=== PATIENT | female | born 1965 | race Hispanic/Latino ===

== ENCOUNTER → 2018-02-01 | Outpatient (CLI) | payer MEDICARE ==
[~2018-02-01] MED LIST: ALPR2TAB7 PO; ASPI-555 PO; CHOL100046 PO; CYAN500L3 SL; DICY20TA11 PO; FLUO40CA49 PO; GABA-531 PO; IRON18TA PO; IRON1CAP35 PO; OMEP20CA10 PO
== END | disposition home or self-care (01) ==
LOC: RAH 12:51
PROVIDERS: ATTEND Nurse Practitioner Family
DX: I70.90 Unspecified atherosclerosis (principal); J32.0 Chronic maxillary sinusitis; I66.29 Occlusion and stenosis of unspecified posterior cerebral artery; I10 Essential (primary) hypertension; E78.5 Hyperlipidemia, unspecified; E78.00 Pure hypercholesterolemia, unspecified; F41.9 Anxiety disorder, unspecified; F32.9 Major depressive disorder, single episode, unspecified; G43.909 Migraine, unspecified, not intractable, without status migrainosus; R26.89 Other abnormalities of gait and mobility; R42 Dizziness and giddiness; R41.3 Other amnesia; Z72.0 Tobacco use; Z79.899 Other long term (current) drug therapy
CPT/HCPCS: 70544; 70551

== ENCOUNTER → 2018-05-29 | Outpatient (CLI) | payer MEDICARE | END | disposition home or self-care (01) | LOC: RAH 09:47 | PROVIDERS: ATTEND Nurse Practitioner Family | DX: Z12.31 Encounter for screening mammogram for malignant neoplasm of breast (principal) | CPT/HCPCS: 77067 ==

== ENCOUNTER 2018-06-27 16:52 | Emergency (ER) | payer MEDICARE ==
[2018-06-27 17:50] LABS: BASOPHILS % (AUTO) 0.9 % (0.0-5.0); EOSINOPHILS % (AUTO) 2.6 % (0.0-8.0); HEMATOCRIT 37.1 % (36-48); LYMPHOCYTES % (AUTO) 27.2 % (21.0-51.0); MEAN CORPUSCULAR HEMOGLOBIN 22.8 pg (27.0-33.0); MEAN CORPUSCULAR HGB CONC 31.1 g/dL (32.0-36.0); MEAN CORPUSCULAR VOLUME 73.4 fL (79-99); MONOCYTES % (AUTO) 6.5 % (3.0-13.0); NEUTROPHILS % (AUTO) 62.8 % (40.0-77.0); PLATELET COUNT (AUTO) 186 K/uL (130-400); RED BLOOD CELL COUNT(AUTO) 5.06 MIL/uL (4.00-5.50); RED CELL DISTRIBUTION WIDTH 22.8 % (11.0-15.5); WHITE BLOOD COUNT (AUTO) 5.7 K/uL (4.8-10.8)
[2018-06-27 18:04] LABS: CREATININE 0.8 mg/dL (0.5-1.5); POTASSIUM 3.4 mmol/L (3.5-5.1)
[2018-06-27 18:09] LABS: ALBUMIN 3.4 g/dL (3.5-5.0); BILIRUBIN,TOTAL 0.5 mg/dL (0.2-1.0); TOTAL PROTEIN, SERUM 7.3 g/dL (6.0-8.3)
[2018-06-27 18:29] LABS: INR 0.9 (0.85-1.15); PARTIAL THROMBOPLASTIN TIME 28.7 SEC (26.3-35.5); PROTHROMBIN TIME 9.5 SEC (9.6-11.6)
== END 2018-06-27 20:40 | disposition home or self-care (01) ==
LOC: EDH 16:52
DX: R20.0 Anesthesia of skin (principal); R29.810 Facial weakness; F41.9 Anxiety disorder, unspecified; F32.9 Major depressive disorder, single episode, unspecified; R79.1 Abnormal coagulation profile; W01.0XXA Fall on same level from slipping, tripping and stumbling without subsequent striking against object, initial encounter; Y93.01 Activity, walking, marching and hiking; Y92.89 Other specified places as the place of occurrence of the external cause; Y99.8 Other external cause status
CPT/HCPCS: 36415; 70450; 80053; 84484; 85025; 85610; 85730; 93005

== ENCOUNTER 2019-04-24 04:42 | Emergency (ER) | payer MEDICARE ==
[~2019-04-24 04:42] MED LIST changes: +OMEP-50 PO; -OMEP20CA10 PO
== END 2019-04-24 06:30 | disposition home or self-care (01) ==
LOC: EDH 04:42
DX: M54.5 Low back pain (principal); F41.9 Anxiety disorder, unspecified; F32.9 Major depressive disorder, single episode, unspecified; Z87.891 Personal history of nicotine dependence; W18.39XA Other fall on same level, initial encounter; Y93.01 Activity, walking, marching and hiking; Y92.89 Other specified places as the place of occurrence of the external cause; Y99.8 Other external cause status
CPT/HCPCS: 70450; 72170; 73090

== ENCOUNTER → 2019-09-04 | Outpatient (CLI) | payer MEDICARE ==
[~2019-09-04] MED LIST changes: -OMEP-50 PO; +OMEP20CA12 PO
== END | disposition home or self-care (01) ==
LOC: RAH 12:46
PROVIDERS: ATTEND Nurse Practitioner Family
DX: N60.02 Solitary cyst of left breast (principal); R92.2 Inconclusive mammogram
CPT/HCPCS: 76641; 77065

== ENCOUNTER 2021-02-20 11:05 | Emergency (ER) | payer OTHER, MEDICARE ==
[~2021-02-20] VITALS: Ht 162.6 cm; Wt 93.0 kg
[~2021-02-20 11:05] MED LIST changes: -ASPI-555 PO; +ASPI-556 PO
[2021-02-20 11:58] VITALS: BP 124/88
[2021-02-20 12:07] LABS: BASOPHILS % (AUTO) 1.1 % (0.0-5.0); EOSINOPHILS % (AUTO) 2.6 % (0.0-8.0); HEMATOCRIT 39.5 % (36-48); LYMPHOCYTES % (AUTO) 32.2 % (21.0-51.0); MEAN CORPUSCULAR HGB CONC 31.6 g/dL (32.0-36.0); MEAN CORPUSCULAR VOLUME 82.3 fL (79-99); MONOCYTES % (AUTO) 7.6 % (3.0-13.0); NEUTROPHILS % (AUTO) 56.2 % (40.0-77.0); PLATELET COUNT (AUTO) 221 K/uL (130-400); RED CELL DISTRIBUTION WIDTH 14.6 % (11.0-15.5); WHITE BLOOD COUNT (AUTO) 6.2 K/uL (4.8-10.8)
[2021-02-20 12:21] LABS: CREATININE 0.8 mg/dL (0.5-1.5); POTASSIUM 3.9 mmol/L (3.5-5.1)
[2021-02-20 12:25] LABS: ALBUMIN 3.4 g/dL (3.5-5.0); BILIRUBIN,TOTAL 0.4 mg/dL (0.2-1.0); TOTAL PROTEIN, SERUM 7.5 g/dL (6.0-8.3)
[2021-02-20] MEDS ORDERED: 0.9%NACL 1000ML 1,000 ML IV ONE (13:01)
[2021-02-20 13:25] VITALS: BP 126/86
== END 2021-02-20 14:02 | disposition home or self-care (01) ==
LOC: EDH 11:05
DX: F41.9 Anxiety disorder, unspecified (principal); I25.10 Atherosclerotic heart disease of native coronary artery without angina pectoris; E11.9 Type 2 diabetes mellitus without complications; I10 Essential (primary) hypertension
CPT/HCPCS: 36415; 80053; 84484; 85025; 93005; 99284; J7030

== ENCOUNTER → 2023-03-02 | Outpatient (CLI) | payer OTHER, MEDICARE ==
[~2023-03-02] MED LIST changes: -DICY20TA11 PO; +DICY20TA3 PO
== END | disposition home or self-care (01) ==
LOC: RAH 12:13
PROVIDERS: ATTEND Nurse Practitioner Family
DX: N60.01 Solitary cyst of right breast (principal); N60.02 Solitary cyst of left breast
CPT/HCPCS: 77066

== ENCOUNTER → 2023-11-30 | Outpatient (CLI) | payer OTHER, MEDICARE ==
[2023-11-30 13:00] LABS: ALBUMIN 3.4 g/dL (3.5-5.0); BILIRUBIN,TOTAL 0.6 mg/dL (0.2-1.0); CREATININE 0.9 mg/dL (0.5-1.0); POTASSIUM 3.9 mmol/L (3.5-5.1); TOTAL PROTEIN, SERUM 7.2 g/dL (6.0-8.3)
== END | disposition home or self-care (01) ==
LOC: LAB 12:01
PROVIDERS: ATTEND Nurse Practitioner Family
DX: L72.9 Follicular cyst of the skin and subcutaneous tissue, unspecified (principal); R51.9 Headache, unspecified
CPT/HCPCS: 36415; 80053

== ENCOUNTER → 2023-12-01 | Outpatient (CLI) | payer OTHER, MEDICARE ==
[~2023-12-01] MED LIST changes: +IOHEXOL-350 50ML VIAL IV ONE
== END | disposition home or self-care (01) ==
LOC: RAH 11:15
PROVIDERS: ATTEND Nurse Practitioner Family
DX: R51.9 Headache, unspecified (principal); L72.9 Follicular cyst of the skin and subcutaneous tissue, unspecified
CPT/HCPCS: 70470; Q9967

== ENCOUNTER 2023-12-20 15:58 | Emergency (ER) | payer OTHER, MEDICARE ==
[~2023-12-20] VITALS: Ht 162.6 cm; Wt 102.1 kg
[~2023-12-20 15:58] MED LIST changes: -IOHEXOL-350 50ML VIAL IV ONE
[2023-12-20 16:57] LABS: BASOPHILS # (AUTO) 0.06 K/uL (0.00-0.20); EOSINOPHILS # (AUTO) 0.15 K/uL (0.00-0.70); EOSINOPHILS % (AUTO) 2.6 % (0.0-8.0); HEMATOCRIT 40.4 % (36-48); IMMATURE GRANULOCYTE ABSOLUTE 0.01 K/uL (0-1); LYMPHOCYTES # (AUTO) 1.7 K/uL (1.0-4.8); LYMPHOCYTES % (AUTO) 28.8 % (21.0-51.0); MEAN CORPUSCULAR HEMOGLOBIN 26.3 pg (27.0-33.0); MEAN CORPUSCULAR HGB CONC 31.7 g/dL (32.0-36.0); MONOCYTES # (AUTO) 0.4 K/uL (0.1-1.0); MONOCYTES % (AUTO) 7.6 % (3.0-13.0); NEUTROPHILS # (AUTO) 3.5 K/uL (1.8-7.7); NEUTROPHILS % (AUTO) 59.8 % (40.0-77.0); PLATELET COUNT (AUTO) 203 K/uL (130-400); RED BLOOD CELL COUNT(AUTO) 4.87 MIL/uL (4.00-5.50); WHITE BLOOD COUNT (AUTO) 5.8 K/uL (4.8-10.8)
[2023-12-20 17:07] LABS: INR <= 0.93 (0.85-1.15); PROTHROMBIN TIME 10.1 SEC (9.6-11.6)
[2023-12-20 17:15] LABS: POTASSIUM 3.8 mmol/L (3.5-5.1)
[2023-12-20 17:27] LABS: ALBUMIN 3.7 g/dL (3.5-5.0); BILIRUBIN,TOTAL 0.8 mg/dL (0.2-1.0); TOTAL PROTEIN, SERUM 7.5 g/dL (6.0-8.3)
[2023-12-20] MEDS ORDERED: MECL-302 PO (18:19)
[2023-12-20 19:03] VITALS: BP 139/96; PULSE 67; RESP 17; O2SAT 96
== END 2023-12-20 19:15 | disposition home or self-care (01) ==
LOC: EDH 15:58
DX: R42 Dizziness and giddiness (principal); E11.9 Type 2 diabetes mellitus without complications; I10 Essential (primary) hypertension; Z86.73 Personal history of transient ischemic attack (TIA), and cerebral infarction without residual deficits; Z79.82 Long term (current) use of aspirin; Z79.899 Other long term (current) drug therapy; Z90.49 Acquired absence of other specified parts of digestive tract
CPT/HCPCS: 36415; 70450; 80053; 84484; 85025; 85610; 85730; 93005

== ENCOUNTER → 2024-04-19 | Outpatient (CLI) | payer OTHER, MEDICARE ==
[~2024-04-19] MED LIST changes: +MECL-302 PO
== END | disposition home or self-care (01) ==
LOC: RAH 11:04
PROVIDERS: ATTEND Nurse Practitioner Family
DX: Z12.31 Encounter for screening mammogram for malignant neoplasm of breast (principal); R92.323 Mammographic fibroglandular density, bilateral breasts; N63.21 Unspecified lump in the left breast, upper outer quadrant
CPT/HCPCS: 77067

== ENCOUNTER → 2024-05-23 | Outpatient (CLI) | payer OTHER, MEDICARE ==
--- NOTE | 2024-05-23 16:31 | HMCIMG ---
US BREAST COMPLETE UNILATERAL REASON: lt breast mass. COMPARISON: Mammogram from 04/19/2024 TECHNIQUE: Left breast ultrasound study was performed. FINDINGS: Hypoechoic nodule is seen in the upper outer quadrant corresponding to the mammographic findings measuring 4 x 2.2 x 3.1 cm. Differential diagnosis would include fibroadenoma with neoplastic process not excluded. Ultrasound guidance core biopsy is recommended. There are left axillary lymph nodes measuring 17 mm and 28 mm each. IMPRESSION: Hypoechoic nodule in the upper outer quadrant of the left breast measuring 4 x 2.2 x 3.1 cm. Ultrasound guidance core biopsy is recommended.
== END | disposition home or self-care (01) ==
LOC: RAH 14:12
PROVIDERS: ATTEND Nurse Practitioner Family
DX: N63.21 Unspecified lump in the left breast, upper outer quadrant (principal)
CPT/HCPCS: 76641

== ENCOUNTER → 2024-07-12 | Outpatient (CLI) | payer OTHER, MEDICARE ==
[2024-07-12 10:42] LABS: INR 0.96 (0.85-1.15); PROTHROMBIN TIME 10.8 SEC (9.6-11.6)
[2024-07-12 10:43] LABS: PARTIAL THROMBOPLASTIN TIME 30.6 SEC (26.3-35.5)
--- NOTE | 2024-07-12 11:15 | NUR ---
U/S GD LT BREAST BX TOLERATED PROCEDURE. PERFORMED BY DR Xochitl NUÑEZ. PUNCTURE SITE TO LT BREAST. BREAST TISSUE MARKER DEPLOYED AFTER REMOVING 4 SPECIMENS. SPECIMEN SENT TO LAB. END OF PROCEDURE AT 1055. NO BLEEDING NOTED. DRESSING APPLIED. DISCHARGE INSTRUCTIONS GIVEN. VERBALIZED UNDERSTANDING. DISCHARGE VIA WHEELCHAIR. DENIES PAIN. A&O.
--- NOTE | 2024-07-12 11:18 | HMCIMG ---
US BREAST BX 1ST LESION IR HISTORY: Left breast nodule COMPARISON: None TECHNIQUE: Informed consent was obtained. Risks and benefits were explained to the patient. A timeout was performed. Patient was prepped and draped in a sterile fashion. Local anesthetics was given as required. Under ultrasound guidance, left breast mass was localized. Ultrasound guidance core biopsy was performed with 14-gauge Bard biopsy gun with coaxial arrangement. At the end of this procedure, microsurgical clip was left in place. FINDINGS: Patient tolerated procedure without complication. Patient left the department in good condition. IMPRESSION: 1. 1. Ultrasound guidance left breast mass core biopsy with microsurgical clip placement.
== END ==
LOC: RAH 09:28
PROVIDERS: ATTEND Student in an Organized Health Care Education/Training Program
DX: N63.20 Unspecified lump in the left breast, unspecified quadrant (principal); N64.1 Fat necrosis of breast; D48.62 Neoplasm of uncertain behavior of left breast; I10 Essential (primary) hypertension; E78.00 Pure hypercholesterolemia, unspecified; E11.40 Type 2 diabetes mellitus with diabetic neuropathy, unspecified; G43.909 Migraine, unspecified, not intractable, without status migrainosus; F41.9 Anxiety disorder, unspecified; Z90.49 Acquired absence of other specified parts of digestive tract; Z79.01 Long term (current) use of anticoagulants; Z79.899 Other long term (current) drug therapy
CPT/HCPCS: 19083; 85610; 85730; 36415; 88305; A4215 ×2; A4648

== ENCOUNTER 2025-01-24 18:52 | Emergency (ER) | payer OTHER, MEDICARE ==
[~2025-01-24] VITALS: Ht 157.5 cm; Wt 97.5 kg
--- NOTE | 2025-01-24 19:20 | ERN ---
ED Note History of Present Illness Stated Complaint: HEADACHE Chief Complaint: Headache Time Seen by MD: 19:02 Dictation: PATIENT IS A 59-YEAR-OLD FEMALE HERE WITH HER WITH COMPLAINTS OF A ACUTE ONSET OF A LEFT TEMPOROPARIETAL HEADACHE THAT RADIATES TO THE OCCIPUT AREA ONSET AN HOUR PRIOR TO ARRIVAL. SHE STATES SHE WAS AT REST WHEN THE ONSET WAS SUDDEN. STATES SHE HAS HAD A SIMILAR EPISODE IN THE PAST IN [facility] WHEN SHE WAS 46 YEARS OLD. SHE STATES SHE WAS TOLD THAT IS SOMETHING BROKEN HER HEAD. HOWEVER, CAN NOT RECALL ANY OTHER DETAILS. PATIENT IS ALERT AND ORIENTED X4 SPEECH IS CLEAR SHE HAS AN OBVIOUS DISTRESS. SHE IS COMPLAINING OF TEMPOROPARIETAL PAIN THAT RADIATES TO HER OCCIPUT. NIH IS 0 AT THIS TIME Allergies: Coded Allergies: No Known Drug Allergies (Unverified Allergy, Unknown, 12/11/15) Home Meds Active Scripts Meclizine HCl (Meclizine HCl) 25 Mg Tablet, 25 MG PO DAILY for vertigo for 7 Days, #7 TAB 0 Refills Prov:CAROL ANN PALMER 12/20/23 Reported Medications Gabapentin (Gabapentin) 300 Mg Capsule, 300 MG PO TID, CAP 12/11/15 Iron,Fum&Ps/FA/Vit B&C#18/L.ca (Fusion Plus Capsule) 1 Each Capsule, 1 EACH PO DAILY, CAP 12/11/15 Cyanocobalamin (Vitamin B-12) (B-12) 500 Mcg Tab.rapdis, 500 MCG SL DAILY, TAB 12/11/15 Cholecalciferol (Vitamin D3) (Vitamin D) 1,000 Unit Capsule, 1000 UNIT PO DAILY, CAP 12/11/15 Iron (Iron) 18 Mg Tablet, 65 MG PO DAILY, TAB 12/11/15 Aspirin (Aspir 81) 81 Mg Tablet.dr, 81 MG PO DAILY, TAB 12/11/15 Dicyclomine HCl (Dicyclomine HCl) 20 Mg Tablet, 20 MG PO QID, TAB 12/11/15 Alprazolam (Alprazolam) 2 Mg Tablet, 2 MG PO TID, TAB 12/11/15 Omeprazole (Omeprazole) 20 Mg Capsule.dr, 20 MG PO DAILY, CAP 12/11/15 Fluoxetine HCl (Fluoxetine HCl) 40 Mg Capsule, 40 MG PO DAILY, CAP 12/11/15 Past Medical History Past Medical History: Diabetes-Type II, High Cholesterol, Hypertension Surgical History: Appendectomy History: Not Applicable RN Note Reviewed/Agreed w/PFSH: Yes Review of System Dictation CONSTITUTIONAL: NEGATIVE EXCEPT FOR HPI HEAD/FACE: NEGATIVE EXCEPT FOR HPI EENT: NEGATIVE EXCEPT FOR HPI RESPIRATORY: NEGATIVE EXCEPT FOR HPI GASTROINTESTINAL/ABDOMINAL: NEGATIVE EXCEPT FOR HPI GENITOURINARY: NEGATIVE EXCEPT FOR HPI MUSCULOSKELETAL: NEGATIVE EXCEPT FOR HPI INTEGUMENTARY: NEGATIVE EXCEPT FOR HPI NEUROLOGICAL/PSYCH: NEGATIVE EXCEPT FOR HPI LEFT TEMPOROPARIETAL HEADACHE RADIATES TO THE OCCIPUT HEMATOLOGIC/LYMPHATIC: NEGATIVE EXCEPT FOR HPI ALL SYSTEMS NEGATIVE, EXCEPT NOTED ABOVE. 13 POINT REVIEW OF SYSTEMS ASSESSED AND ALL NEGATIVE EXCEPT FOR ABOVE. Initial Vital Sign VS Vital Signs Date Time Temp Pulse Resp B/P (MAP) Pulse Ox O2 Delivery O2 Flow Rate FiO2 01/24/25 18:55 98.1 100 18 127/98 93 Room Air 0 01/24/25 18:59 21 Physical Exam Dictation VITAL SIGNS REVIEWED GENERAL APPEARANCE: ALERT, ORIENTED X 3, MODERATE ACUTE DISTRESS, WELL DEVELOPED, NOURISHED. OBESE HEAD AND FACE: NON-TRAUMATIC. EYES: PERRL, PINK CONJUNCTIVAS, EYELID NO TRAUMA, ANTERIOR CHAMBER WITH ARCUS SENILIS. EARS: PINNAS INTACT AND NO SIGNS OF TRAUMA OR ERYTHEMA EAR CANALS CLEAR AND NO DISCHARGE TM NO ERYTHEMA NOSE: NO DISCHARGE, NO BLEEDING. OROPHARYNX: MOUTH NORMAL, TONGUE PINK, PHARYNX CLEAR,NO ERYTHEMA, TONSILS NO EXUDATES, NO ABSCESSES NOTED, MUCOUS MEMBRANE MOIST NECK: SUPPLE, NON-TENDER, NO THYROMEGALY, NO MASSES, NO JVD, NO BRUITS BREAST:DEFERRED CHEST:NO TENDERNESS, NO CREPITUS, NO PARADOXICAL MOVEMENT, NO RETRACTIONS LUNGS:CLEAR, WELL-VENTILATED, SYMMETRIC, NO RALES, NO WHEEZING, NO RHONCHI, NO STRIDOR, GOOD BREATH SOUNDS BILATERALLY HEART: REGULAR RATE, REGULAR RHYTHM, NO MURMUR, NO GALLOPS VASCULAR: NO PERIPHERAL EDEMA, ABDOMEN: SOFT, POSITIVE BOWEL SOUNDS, NONDISTENDED, NO GUARDING, NONTENDER, NO REBOUND, NO MASSES NO HEPATOMEGALY, NO SPLENOMEGALY, NO SMITH'S SIGN, NO HERNIAS. RECTAL: DEFERRED GENITAL: DEFERRED NEUROLOGICAL: NORMAL SPEECH, MOTOR FUNCTION INTACT, SENSORY FUNCTION INTACT MUSCULOSKELETAL: NECK NONTENDER, FULL RANGE OF MOTION, BACK NONTENDER, FULL RANGE OF MOTION, EXTREMITIES: NONTENDER, FULL RANGE OF MOTION SKIN: COLOR PINK, DRY, NO TURGOR, NO RASH, NO LACERATIONS, NO ABRASIONS, NO CONTUSIONS. LYMPHATIC: DEFERRED Results (Laboratory/Radiology) Laboratory/Radiology Laboratory Tests Test 01/24/25 19:38 White Blood Count 9.2 K/uL (4.8-10.8) Red Blood Count 5.41 MIL/uL (4.00-5.50) Hemoglobin 13.7 g/dL (12.0-16.0) Hematocrit 43.5 % (36-48) Mean Corpuscular Volume 80.4 fL (79-99) Mean Corpuscular Hemoglobin 25.3 pg (27.0-33.0) L Mean Corpuscular Hemoglobin Concent 31.5 g/dL (32.0-36.0) L Red Cell Distribution Width 14.7 % (11.0-15.5) Platelet Count 261 K/uL (130-400) Mean Platelet Volume 10.0 fL (7.5-10.5) Immature Granulocyte % (Auto) 0.4 % (0-1) Neutrophils (%) (Auto) 71.2 % (40.0-77.0) Lymphocytes (%) (Auto) 19.9 % (21.0-51.0) L Monocytes (%) (Auto) 6.2 % (3.0-13.0) Eosinophils (%) (Auto) 1.5 % (0.0-8.0) Basophils (%) (Auto) 0.8 % (0.0-5.0) Neutrophils # (Auto) 6.5 K/uL (1.8-7.7) Lymphocytes # (Auto) 1.8 K/uL (1.0-4.8) Monocytes # (Auto) 0.6 K/uL (0.1-1.0) Eosinophils # (Auto) 0.14 K/uL (0.00-0.70) Basophils # (Auto) 0.07 K/uL (0.00-0.20) Absolute Immature Granulocyte (auto 0.04 K/uL (0-1) Nucleated Red Blood Cells 0.0 % (0.0-0.19) Sodium Level 139 mmol/L (136-145) Potassium Level 3.8 mmol/L (3.5-5.1) Chloride Level 102 mmol/L (101-111) Carbon Dioxide Level 29 mmol/L (21-32) Blood Urea Nitrogen 13 mg/dL (7-18) Creatinine 1.0 mg/dL (0.5-1.0) Glomerular Filtration Rate Calc 65 mL/min (>90) Random Glucose 143 mg/dL (70-105) H Total Calcium 9.4 mg/dL (8.5-10.1) PATIENT: JARETH JOHNSON MR#: [id number] : 1965 SEX: F AGE: 59 LOCATION: [facility] ORDER 16 STATUS: REG REPORT#: [id number] SERVICE 14 REASON: LEFT TEMPOROPARIETAL HEADACHE THAT RADIATES TO CERVICAL SPINE ORDERING PHYSICIAN: DARLEEN GENAO UMBRELLA MENDER PROCEDURE: HEAD WO - CT HEAD/BRAIN W/O CONTRAST EXAM: CT Head Without IV contrast. CLINICAL HISTORY: LEFT TEMPOROPARIETAL HEADACHE THAT RADIATES TO CERVICAL SPINE TECHNIQUE: Axial computed tomography images of the head/brain without intravenous contrast. COMPARISON: None provided. FINDINGS: BRAIN: No evidence of acute hemorrhage. No mass lesion. No CT evidence for acute territorial infarct. No midline shift or extra-axial collections. VENTRICLES: No hydrocephalus. ORBITS: The orbits are unremarkable. SINUSES AND MASTOIDS: The paranasal sinuses and mastoid air cells are clear. BONES: No fracture. SOFT TISSUES: Unremarkable. IMPRESSION: No acute intracranial abnormality. /[place] Labs Reviewed?: Yes ED Course ED Course Orders Procedure Category Date Status Time Cbc With Differential LAB 01/24/25 Complete 19:14 Basic Metabolic Panel LAB 01/24/25 Complete 19:14 Ct Head/Brain W/O CT 01/24/25 Resulted Contrast 19:15 Acetaminophen 500mg PHA 01/24/25 In Process Tab (Tylenol 500mg T 19:30 Current Medications Medications (Trade) Dose Ordered Sig/Joseluis Route PRN Reason Start Time Stop Time Status Last Admin Dose Admin Acetaminophen (TYLenol 500MG TAB) 1,000 mg ONCE PO 01/24/25 19:30 01/24/25 23:30 01/24/25 19:31 Vital Signs Date Time Temp Pulse Resp B/P (MAP) Pulse Ox O2 Delivery O2 Flow Rate FiO2 01/24/25 18:59 98.1 100 18 127/98 93 Room Air* 0 21 01/24/25 18:55 98.1 100 18 127/98 93 Room Air 0 2014/patient and at length regarding CT and labs. and patient now admit that they just got back from [place], [place] this afternoon and saw neurologist. The neurologist had performed an MRI of her neck and we will have them results in 10 days. Additionally she was prescribed amitriptyline and Ubrogepant for migraine headaches. Has been also states it patient has had this headache intermittently for a long time. And did not have the headache when she was seeing her neurologist this morning. I advised patient and her h usband I would not be adding any additional medications to the treatment from the neurologist in [place]. Continue the medications that she had been prescribed today and follow up with her doctor in [place] all questions answered. Patient remains neurologically intact NIH is 0. Patient states pain is markedly reduced after acetaminophen. Medical Decision Making MDM MDM: Differential diagnosis: Tension sled/migraine headache/subarachnoid hemorrhage/cluster headache/electrolyte imbalance/dehydration Rationale: Tests considered and ordered secondary to shared decision making include: Radiology/labs Previous outside records reviewed: Old ER visits. Risk of complication and/or morbidity or mortality of patient management: None Medications-Per medication reconciliation Need for hospitalization: Patient does not meet criteria for hospitalization. None Need for emergency major/minor surgery: No There are no social concerns with this patient. Prescription drug management none c care Patient's prior external medical records from other ER visits were reviewed by me as indicated. Prior testing and results from previous visits were reviewed. Prior tests were taken into account with medical decision making and resource utilization, independent historian/historians were used to obtain complete medical history. I independently interpreted the test that were performed, results were reviewed by me and considered findings on radiology if ordered. Medical management and examination interpretation discussions were had by me with other qualified healthcare professionals as indicated for the patient's c are. DX & DISP Disposition: Discharge Departure Impression: Primary Impression: Migraine headache without aura Additional Impressions: Anxiety, Diabetes mellitus with hyperglycemia Condition: Stable Additional Instructions: Follow-up with primary care provider in 1 to 2 days. Take medications as directed here in the emergency room. Okay to continue home medications unless otherwise discussed during your visit in the emergency room today. Return to your nearest emergency room if symptoms worsen or if there is no improvement. Call 911 if you need immediate assistance. Take Tylenol or Motrin over-the- counter as needed and if no contraindications are present. Increase oral hydration. A wound culture or urine culture was ordered here in the emergency room department please follow-up with primary care provider and advise them to get repeat ports from our facility. If you had any Varun wrap/splints that were applied here, please do not remove them until you see your primary care or specialty. Continue all your medications and treatments from your neurologist in [place], [place]. Take Tylenol [id number] as needed for any additional pain relief. Follow back up with your neurologist in next 2-3 days as needed. Referrals: RUMA ARTHUR (PCP) Time of Disposition: 20:18 I have reviewed the case, and I agree with, Diagnosis and Plan DARLEEN GENAO NP Jan 24, 2025 19:20
[2025-01-24 19:44] LABS: IMMATURE GRANULOCYTE ABSOLUTE 0.04 K/uL (0-1); NUCLEATED RED BLOOD CELLS 0.0 % (0.0-0.19); PLATELET COUNT (AUTO) 261 K/uL (130-400); RED BLOOD CELL COUNT(AUTO) 5.41 MIL/uL (4.00-5.50); RED CELL DISTRIBUTION WIDTH 14.7 % (11.0-15.5); WHITE BLOOD COUNT (AUTO) 9.2 K/uL (4.8-10.8)
[2025-01-24 19:57] LABS: CREATININE 1.0 mg/dL (0.5-1.0); GLOMERULAR FILTR. RATE CALC 65.0 mL/min (>90); GLUCOSE,RANDOM 143.0 mg/dL (70-105); SODIUM SERUM 139.0 mmol/L (136-145); UREA NITROGEN, BLOOD 13.0 mg/dL (7-18)
--- NOTE | 2025-01-24 20:04 | HMCIMG ---
EXAM: CT Head Without IV contrast. CLINICAL HISTORY: LEFT TEMPOROPARIETAL HEADACHE THAT RADIATES TO CERVICAL SPINE TECHNIQUE: Axial computed tomography images of the head/brain without intravenous contrast. COMPARISON: None provided. FINDINGS: BRAIN: No evidence of acute hemorrhage. No mass lesion. No CT evidence for acute territorial infarct. No midline shift or extra-axial collections. VENTRICLES: No hydrocephalus. ORBITS: The orbits are unremarkable. SINUSES AND MASTOIDS: The paranasal sinuses and mastoid air cells are clear. BONES: No fracture. SOFT TISSUES: Unremarkable. IMPRESSION: No acute intracranial abnormality. /[place]
[2025-01-24 20:34] VITALS: BP 125/80; PULSE 94; RESP 17; TEMP 98.4; O2SAT 99
== END 2025-01-24 20:35 | disposition home or self-care (01) ==
LOC: EDH 18:52
DX: G43.009 Migraine without aura, not intractable, without status migrainosus (principal); E11.65 Type 2 diabetes mellitus with hyperglycemia; E78.00 Pure hypercholesterolemia, unspecified; F41.9 Anxiety disorder, unspecified; I10 Essential (primary) hypertension; Z79.82 Long term (current) use of aspirin; Z79.899 Other long term (current) drug therapy; Z90.49 Acquired absence of other specified parts of digestive tract
CPT/HCPCS: 36415; 70450; 80048; 85025; 99284